=== PATIENT | female | born 1995 | race Caucasian/White ===

== ENCOUNTER 2025-02-01 14:45 | Outpatient (CLI) | payer BC, SELFPAY | END 2025-02-01 23:59 | disposition home or self-care (01) | LOC: LAB.DROPOF 02-02 10:01 | PROVIDERS: PCP Nurse Practitioner Family; Visit Provider Nurse Practitioner Family | DX: R35.0 Frequency of micturition (principal) | CPT/HCPCS: 87086; 87088; 87186 ==